=== PATIENT | male | born 1990 | race Caucasian/White ===

== ENCOUNTER → 2017-10-26 16:05 | Outpatient (CLI) | payer OTHER, SELFPAY ==
--- NOTE | 2017-10-26 16:08 | MR_ITS ---
MR lumbar spine wo con, MR 3-d myelogram/MRCP HISTORY: PT states RT side low back pain, RT hip, leg and groin X 1 week. No known injury. ITS.REASON: RIGHT-SIDED LOW BACK PAIN, LUMBAR DDD, BULGING LUMBAR DISC ORDERING PHYSICIAN: Sunil Santo MD PATIENT AGE: 27 years Comparison: CT Lumbar 02/27/14. X-RAY 04/20/13. TECHNIQUE: Standard multiplanar multiecho sequences are performed without contrast. 3-D MIP and myelographic images are also rendered and reviewed FINDINGS: There is normal alignment. The spinal cord ends at the L1-L2 level. T11-T12, T12-L1, L1-L2, L2-L3, and L3-L4 have been unremarkable appearance. L4-L5: Minimal bulging disc. L5-S1: Mild bulging disc with a small broad-based right paracentral disc protrusion abutting the anterior aspect of the right S1 nerve root with minimal right lateral recess narrowing. Mild disc desiccation at L4-L5 and L5-S1. No extruded herniated disc or canal stenosis. IMPRESSION: 1. Mild degenerative disc disease with minimal bulging disc at L4-5 and L5-S1. 2. Mild broad-based right paracentral disc protrusion at L5-S1 abutting the anterior aspect of the right S1 nerve root. 3. No canal stenosis or extruded herniated disc evident
== END ==
PROVIDERS: PCP Family Medicine; Visit Provider Family Medicine
DX: M54.41 Lumbago with sciatica, right side (principal); M51.36 Other intervertebral disc degeneration, lumbar region; M51.26 Other intervertebral disc displacement, lumbar region
CPT/HCPCS: 72148; 76376

== ENCOUNTER → 2019-07-05 13:52 | Outpatient (CLI) | payer BC, SELFPAY ==
[2019-07-05 14:17] LABS: Adenovirus F 40/41, stool Not Detected (NotDetected); Astrovirus Not Detected (NotDetected); Campylobacter Not Detected (NotDetected); Clostridium Difficile A/B, PCR Not Detected (NotDetected); Cyclospora Cayetanesis Not Detected (NotDetected); Entamoeba histolytica Not Detected (NotDetected); Enteroaggregative E coli Not Detected (NotDetected); Enterotoxigenic E coli Not Detected (NotDetected); Giardia lamblia Not Detected (NotDetected); Norovirus Not Detected (NotDetected); Plesimonas Shigalloides, PCR Not Detected (NotDetected); Rotavirus A Not Detected (NotDetected); Salmonella, PCR Not Detected (NotDetected); Sapovirus Not Detected (NotDetected); Shiga-like toxin E coli Not Detected (NotDetected); Shigella Enterovasive E coli Not Detected (NotDetected); Vibrio Cholerae Not Detected (NotDetected); Vibrio, PCR Not Detected (NotDetected); Yersinia Entercolitica, PCR Not Detected (NotDetected)
[2019-07-05 17:20] LABS: Cryptosporidium Detected (NotDetected); Enteropathogenic E coli Detected (NotDetected)
== END ==
PROVIDERS: Visit Provider Physician Assistant
DX: R19.7 Diarrhea, unspecified (principal); A07.2 Cryptosporidiosis; A04.1 Enterotoxigenic Escherichia coli infection
CPT/HCPCS: 87507

== ENCOUNTER → 2019-07-18 11:07 | Outpatient (CLI) | payer BC, SELFPAY ==
[2019-07-18 11:11] LABS: Adenovirus F 40/41, stool Not Detected (NotDetected); Astrovirus Not Detected (NotDetected); Campylobacter Not Detected (NotDetected); Clostridium Difficile A/B, PCR Not Detected (NotDetected); Cryptosporidium Not Detected (NotDetected); Cyclospora Cayetanesis Not Detected (NotDetected); Entamoeba histolytica Not Detected (NotDetected); Enteroaggregative E coli Not Detected (NotDetected); Enteropathogenic E coli Not Detected (NotDetected); Enterotoxigenic E coli Not Detected (NotDetected); Giardia lamblia Not Detected (NotDetected); Norovirus Not Detected (NotDetected); Plesimonas Shigalloides, PCR Not Detected (NotDetected); Rotavirus A Not Detected (NotDetected); Salmonella, PCR Not Detected (NotDetected); Sapovirus Not Detected (NotDetected); Shiga-like toxin E coli Not Detected (NotDetected); Shigella Enterovasive E coli Not Detected (NotDetected); Vibrio Cholerae Not Detected (NotDetected); Vibrio, PCR Not Detected (NotDetected); Yersinia Entercolitica, PCR Not Detected (NotDetected)
== END ==
LOC: LAB 11:07
PROVIDERS: Visit Provider Physician Assistant
DX: R19.7 Diarrhea, unspecified (principal); A07.2 Cryptosporidiosis
CPT/HCPCS: 87507

== ENCOUNTER → 2020-03-12 15:09 | Outpatient (CLI) | payer BC, SELFPAY ==
[2020-03-14 08:13] LABS: Covid-19 Nasal PCR Sendout P&C Negative
== END ==
PROVIDERS: PCP Physician Assistant; Visit Provider Physician Assistant
DX: Z11.52 Encounter for screening for COVID-19 (principal)
CPT/HCPCS: U0004

== ENCOUNTER 2020-09-27 09:31 | Emergency (ER) | payer BC, SELFPAY ==
[2020-09-27 10:05] VITALS: BP 138/76; PULSE 62; RESP 20; TEMP 36.8; O2SAT 97; BMI 36.1
[2020-09-27 10:40] VITALS: BP 138/76; PULSE 62; RESP 20; TEMP 36.8; O2SAT 97
--- NOTE | 2020-09-27 10:43 | HMH.EDUTC ---
[facility] [place] Clinical Impression: Encounter for laboratory testing for COVID-19 virus Disposition: Home, Self-Care Condition on Discharge: Good Instructions: DI for COVID-19 (Suspected or Confirmed ), Coronavirus Disease 2019, Preventing the Spread of Coronavirus Discharge Instructions Additional Instructions: *Monitor Temp, Over the counter Motrin or Tylenol as directed/as needed Tylenol every 4 hours and Motrin every 6 hours (as long as your family doctor has told you that you can take it) for fever or pain. and straight to ER if unable to lower temp less than 101.0 after medication given *Warm salt water gargles may help to soothe the throat *Throat Lozenges *Warm fluids like tea with honey may help to soothe the throat *Sleep elevated *Humidifier/Vaporizer You can do over the counter Mucinex during the day then use Bromfed at night to rest with cough *Flonase 2 sprays in each nostril daily but be aware that it may take 2-3 days before you notice improvement *Bromfed may cause drowsiness. Know how it effects you (your child) before driving, caring for small child, or sending your child to school. Not other antihistamines/allergy medications while taking bromfed Follow up IMMEDIATELY for new or worsening symptoms or no Noticeable improvement over the next 48-72 hours. 911 for difficulty breathing or swallowing You were tested for today for COVID19 your test result should be back in the next 24-48 hours, you may call to the [facility] to see if your test results are back in the next 48 hours [phone] [facility] hours are 9am-9pm You was given a handout with instructions for Self Quarantine and Self isolation for while you wait on test results and what to do if they are positive If you are positive the Health Dept will be contacting you also Make sure to take your Vitamins Vit. C Vit D and Zinc if you can take them Prescriptions: Brompheniramine/Pseudoephed/Dm [Bromfed Dm Cough Syrup] 5 - 10 ml PO Q46H PRN #250 ml PRN Reason: Cough Transmission Status: Pending to [facility] Fluticasone Propionate [Flonase 50mcg nasal spray 16gm] 1 spr NS DAILY #1 ml Transmission Status: Pending to [facility] Referrals: Sunil Santo MD [Primary Care Provider] - As needed Forms: Work/School Release Time of Disposition: 10:49 Medical Decision Making - Jose Inquiry Pt receiving controlled substance: No Jose was queried for this patient: No Vital Signs: 09/27/20 10:05 Temperature 98.2 F Temperature Source Oral Pulse Rate [Right Brachial] 62 Respiratory Rate 20 Blood Pressure [Right Arm] 138/76 Blood Pressure Mean [Right Arm] 96 Blood Pressure Source [Right Arm] Automatic Cuff Blood Pressure Position [Right Arm] Sitting 02 Sat by Pulse Oximetry 97 Oxygen Delivery Method Room Air Orders (Tests/Meds): ORDERS Category Date Time Status Covid-19 Nasal PCR ([facility]) Routine Lab 09/27/20 10:16 Ordered [facility] [place] HPI - General Stated complaint: no taste or smell achy all over Time Seen by Provider: 09/27/20 10:43 Mode of Arrival: Ambulatory Source of Information: Patient Limitations: No Limitations Description of Symptoms (Recalled from Triage Doc. by RN): PATIENT C/O BODY ACHES, LOSS OF TASTE/SMELL, SINUS PRESSURE AND HEADACHE X 3 DAYS. EXPOSED TO COVID RECENTLY HEENT Symptoms (Recalled from RN notes): Yes Resp Symptoms (Recalled from RN notes): No Skin Symptoms (Recalled from RN notes): No MS Symptoms (Recalled from RN notes): No Functional Status (Recalled from RN notes): WNL - History of Present Illness Provider Complaint: Patient states that he has been having body aches, chills, sinus congestion and cough for several days and today loss his sense of taste and smell States that his girlfriend tested positive for COVID on Wednesday State that he feels like he may have it now too - Related Data Previous Rx's Medication Instructions Recorded Brompheniramine/Pseudoephed/Dm 5 - 10 ml PO Q46H PRN #250 m
--- NOTE | 2020-09-27 21:04 | PC.NURSE ---
ATTEMPTED TO CALL PT REGARDING COVID TEST RESULTS. NO ANSWER. LEFT VOICEMAIL FOR HIM TO CALL BACK
== END 2020-09-27 10:48 | disposition home or self-care (01) ==
PROVIDERS: Emergency Provider Nurse Practitioner; PCP Family Medicine
DX: U07.1 COVID-19 (principal)
CPT/HCPCS: 99202; G0463; U0003

== ENCOUNTER 2021-01-24 13:43 | Emergency (ER) | payer BC, SELFPAY ==
[2021-01-24 13:50] VITALS: BP 143/83; PULSE 78; RESP 19; TEMP 37; O2SAT 98; BMI 23.7
--- NOTE | 2021-01-24 15:05 | HMH.EDUTC ---
[facility] [place] Clinical Impression: Avulsion of skin of left hand Qualifiers: Encounter type: initial encounter Qualified Code(s): S61.402A - Unspecified open wound of left hand, initial encounter Disposition: Home, Self-Care Condition on Discharge: Good Instructions: DI for Avulsion Laceration (Not Requiring Sutures) Additional Instructions: Keep the wound clean and dry. Keep a dressing on it if you are going to be getting it dirty. Watch the for signs of infection, such as redness, swelling, drainage, fever. etc. Take tylenol or ibuprofen for pain. I sent in a prescription for ibuprofen to your pharmacy. Take the antibiotics as directed. Apply the topical antibiotic ointment as directed. Follow up with her regular doctor. GO TO THE ER FOR ANY WORSENING SYMPTOMS OR CONCERNS. Prescriptions: Mupirocin [Bactroban 2% Ointment 22gm tube] 1 applicatio TP TID 7 Days #1 gm Transmission Status: Pending to [facility] cephALEXin [cephALEXin 500mg capsule] 500 mg PO Q6H 10 Days #40 cap Transmission Status: Pending to [facility] Referrals: Sunil Santo MD [Primary Care Provider] - Time of Disposition: 15:14 Medical Decision Making - Medical Records Medical records reviewed: No: I reviewed the patient's medical records. - Jose Inquiry Pt receiving controlled substance: No Vital Signs: 01/24/21 13:50 Temperature 98.6 F Temperature Source Oral Pulse Rate [Right Brachial] 78 Respiratory Rate 19 Blood Pressure [Right Arm] 143/83 H Blood Pressure Mean [Right Arm] 103 Blood Pressure Source [Right Arm] Automatic Cuff Blood Pressure Position [Right Arm] Sitting 02 Sat by Pulse Oximetry 98 Oxygen Delivery Method Room Air [facility] [place] - General Stated complaint: Cut on L hand, pinky and ring finger Time Seen by Provider: 01/24/21 13:55 Mode of Arrival: Ambulatory Source of Information: Patient, Parent(s) Limitations: No Limitations Description of Symptoms (Recalled from Triage Doc. by RN): PATIENT STATES HE WAS ON A LADDER AND SLIPPED, CUTTING LEFT RING AND PINKY FINGERS. HE REPORTS HE IS UP TO DATE ON HIS TDAP HEENT Symptoms (Recalled from RN notes): No Resp Symptoms (Recalled from RN notes): No Skin Symptoms (Recalled from RN notes): Yes MS Symptoms (Recalled from RN notes): No Functional Status (Recalled from RN notes): WNL - History of Present Illness Provider Complaint: He was climbing a ladder and slipped. When he slipped he grabbed a board to hold on to. The board was very rough and it tore his skin on the palmar aspect of his left hand of his 4th and 5th finger. He denies any other injury. He denies any difficulty bending or straightening his fingers. He denies any numbness or tingling of his fingers. His tetanus immunization is up to date. - Related Data Previous Rx's Medication Instructions Recorded Mupirocin [Bactroban 2% Ointment 1 applicatio TP TID 7 Days #1 gm 01/24/21 22gm tube] cephALEXin [cephALEXin 500mg 500 mg PO Q6H 10 Days #40 cap 01/24/21 capsule] Allergies Allergy/AdvReac Type Severity Reaction Status Date / Time No Known Allergies Allergy Verified 11/03/19 09:30 - Worker's Comp Is this a Worker's Comp case?: No [facility] History - Hepatitis A Screen Drug use history?: No High risk sexual behaviors?: No History of sexually transmitted infection?: No Currently employed?: No Childcare worker?: No Do you have indoor plumbing?: Yes Do you have electricity?: Yes Attestation statement:: This patient has been screened for Hepatitis A risk factors. I have reviewed the patient's past medical history: Yes Medical History: Denies:: Diabetes Mellitus Type 2 - Social History Smoking Status: Never smoker Alcohol Intake: never Substance Use Type: denies use Occupational Status: other ROS Obtained: Yes All systems reviewed & no additional complaints - Constitutional Constitutional: Denies chills, Denies fever(s)
[2021-01-24 15:23] VITALS: BP 143/83; PULSE 78; RESP 19; TEMP 37; O2SAT 98
== END 2021-01-24 15:38 | disposition home or self-care (01) ==
PROVIDERS: Emergency Provider Nurse Practitioner Family; PCP Family Medicine
DX: S61.402A Unspecified open wound of left hand, initial encounter (principal); W22.8XXA Striking against or struck by other objects, initial encounter; W11.XXXA Fall on and from ladder, initial encounter; Y92.9 Unspecified place or not applicable
CPT/HCPCS: 99202; G0463